=== PATIENT | female | born 1970 | race Caucasian/White ===

== ENCOUNTER 2020-02-16 05:34 | Observation (INO) ==
--- NOTE | 2020-02-05 16:21 | PAT Medication Instructions ---
Medication Instructions Date of Service February 05, 2020 Home Medications lisinopril 20 mg PO QPM medroxyprogesterone 10 mg PO QPM ASK your surgeon for instructions medroxyprogesterone 10 mg PO QPM Take evening before surgery lisinopril 20 mg PO QPM OTHERWISE NOTHING TO EAT OR DRINK AFTER MIDNIGHT Other Notes If you have any questions please call us at [phone] or [phone] or [phone] or [phone]
--- NOTE | 2020-02-07 15:01 | Anesthesiology Consultation ---
Date of Service February 07, 2020 Assessment & Plan (1) Encounter for pre-operative examination: COVID Status: As of 02/06 assessment, patient denies travel to endemic area, known exposure/sick contacts, or symptoms of COVID19. Patient instructed that they and their household members must follow strict social distancing guidelines, wear a mask in public and avoid travel for 14 days prior to surgery. Preoperative COVID19 testing to be completed prior to surgery per surgeon's arrangements. Patient made aware to self-isolate as much as possible between COVID testing and surgery. Chart Review Chart Review: Acceptable Risk for Surgery and Patient seen in Pre Admission Testing Teaching & Discussion Instructed NPO after midnight before surgery, except medications with 15 cc of water. Medication instructions provided according to the PAT guidelines. History Surgery Operation Date: 02/16/20 07:00 Proposed Procedures p Total Laparoscopic Hysterectomy, Bilateral Salphingectomy and Cystoscopy - Latha Shea Height/Weight Height: 5 ft 4 in Weight: 78.7 kg Allergies Allergy/AdvReac Type Severity Reaction Status Date / Time No Known Allergies Allergy Verified 02/02/20 08:32 Medications Home Medications Medication Instructions Recorded Confirmed Last Taken lisinopril 20 mg PO QPM 02/02/20 02/02/20 Unknown medroxyprogesterone 10 mg PO QPM 02/02/20 02/02/20 Unknown Past Medical History Medical History HTN (hypertension) Exercise / Class Metabolic Activity II 4-5 Yardwork/Stairs/Walk up hill (Denies CP or SOB with 1 FOS) Past Surgical History Surgical History History of D&C x2 History of endometrial ablation History of tonsillectomy History of tubal ligation Past Anesthesia History No Hx of Anesthesia Complications and No Family Hx of Anesthesia Complications History of PONV No Hx of PONV and No Hx of Motion Sickness (except on rollercoasters) Social History Smoking Status: Never smoker Do You Dip or Chew Tobacco: No Hx Alcohol Use: Yes alcohol intake frequency: a few times a month Alcohol Intake Frequency Comment: 1 drink per week Hx Substance Use: No substance use type: does not use Review of Systems Pt denies any recent chest pain, shortness of breath, palpitations, cough, fever, URI, or uncontrolled acid reflux. Physical Exam Vital Signs BP: 149/83 (has been more elevated recently, PCP monitoring) P: 71bpm SPO2: 99% RA T: 98.5 F R: 16 ENMT Mouth: + dental restorations (fillings only) and + small oral opening; no chipped teeth and no loose teeth Thyromental Distance: < 3.5 Finger Breadths (3) Mallampati Class: II Neck normal visual inspection; neck extension not limited Respiratory normal respiratory effort Auscultation: lungs clear to auscultation bilaterally Cardiovascular Rate/Rhythm: regular rate and regular rhythm Heart Sounds: no murmur Extremities: no edema Testing Laboratory Results 02/07/20 15:16 02/07/20 15:16 Blood Type A Positive 02/07/20 15:13 Antibody Screen NEGATIVE 02/07/20 15:13 Electrocardiogram Date: 02/07/20 Findings: + NSR @ (67bpm) Stress Test Date: 08/19/19 Type: exercise Examination is adequate to evaluate the referral indication. The stress echo is negative for inducible ischemia. Mild equivocal EKG changes were noted in the post exercise recovery interval.
[2020-02-07 15:48] LABS: Basophils # (auto) 0.01 K/uL (0-0.2); Basophils % (auto) 0.1 %; Eosinophils # (auto) 0.11 K/uL (0-0.5); Eosinophils % (auto) 1.4 %; Hematocrit (blood only) 41.1 % (37-47); Hemoglobin 13.7 g/dL (12.0-16.0); Immature Granulocytes # (auto) 0.01 K/uL (0.00-0.02); Immature Granulocytes % (auto) 0.1 %; Lymphocytes # (auto) 2.22 K/uL (1.2-3.4); Lymphocytes % (auto) 27.9 %; Mean Corpuscular Hemoglobin 31.6 pg (25-34); Mean Corpuscular Hgb Conc 33.3 g/dL (32-36); Mean Corpuscular Volume 94.7 fL (80-100); Mean Platelet Volume 9.3 fL (7.4-10.4); Monocytes % (auto) 6.3 %; Neutrophils # (auto) 5.11 K/uL (1.4-6.5); Neutrophils % (auto) 64.2 %; Platelet Count 332 K/uL (130-400); RDW Coefficient of Variation 12.9 % (11.5-14.5); RDW Standard Deviation 45.1 fL (36.4-46.3); Red Blood Count 4.34 M/uL (4.2-5.4); White Blood Count 7.96 K/uL (4.8-10.8)
[2020-02-07 16:09] LABS: BUN Creatinine Ratio 15.5 (10-20); Calcium 8.6 mg/dl (8.5-10.1); Creatinine Clr Calc Pharmacy 103.5 ml/min; Est GFR (African American) 119.4
--- NOTE | 2020-02-07 17:17 | Electrocardiogram Report ---
Test Reason : Blood Pressure : / mmHG Vent. Rate : 067 BPM Atrial Rate : 067 BPM P-R Int : 128 ms QRS Dur : 100 ms QT Int : 404 ms P-R-T Axes : 027 066 043 degrees QTc Int : 426 ms Normal sinus rhythm Normal ECG No previous ECGs available Confirmed by Pato Martinez ([id number]) on 02/07/2020 5:17:25 PM Referred By: Latha Shea Confirmed By:Cristobal Martinez
[2020-02-16] MEDS ORDERED: LACTATED RINGER'S 1,000 ML IV SCH ×2 (06:00→19:30)
[2020-02-16] MEDS ORDERED: LR 15ML/HR IV SCH (06:00)
[2020-02-16] MEDS ORDERED: CEFAZOLIN 2000MG 2,000 MG/15 ML SYR IV SCH (06:00)
--- NOTE | 2020-02-16 06:26 | History & Physical Bridge Note ---
Date of Service February 16, 2020 History & Physical Bridge Note I have examined the patient, reviewed the History & Physical and in the interval since the performance of the History & Physical I have noted the following changes of clinical significance: no changes noted
[2020-02-16] MEDS ORDERED: ONDANSETRON INJ 2 MG/ML 2 ML VIAL ONE (06:36)
[2020-02-16] MEDS ORDERED: LIDOCAINE HCL 2% 2 ML VIAL/AMP(20MG/ML) INFIL ONE (06:36)
[2020-02-16] MEDS ORDERED: MIDAZOLAM HCL 1 MG/ML 2ML VIAL ONE (06:36)
[2020-02-16] MEDS ORDERED: PROPOFOL IV EMULSION 10 MG/ML 20 ML VIAL IV ONE (06:36)
[2020-02-16] MEDS ORDERED: GLYCOPYRROLATE 0.2 MG/ML VIAL ONE ×2 (06:36→08:25)
[2020-02-16] MEDS ORDERED: fentaNYL citrate 100 MCG/2 ML VIAL ONE ×3 (06:36→08:33)
[2020-02-16] MEDS ORDERED: NEOSTIGMINE METHYLSULFATE 5 MG/5 ML SYR ONE (06:36)
[2020-02-16] MEDS ORDERED: DEXAMETHASONE SOD INJ 4 MG/ML VIAL ONE (06:36)
[2020-02-16] MEDS ORDERED: BUPIVACAINE 0.5 % 5 MG/1 ML MPF 30ML VIAL ONE (06:40)
[2020-02-16] MEDS ORDERED: ATROPINE SULFATE 0.1 MG/ML 10ML SYR IV PRN (06:59)
[2020-02-16] MEDS ORDERED: PROMETHAZINE HCL 12.5 MG in SODIUM CHLORIDE 0.9% 50 ML IV PRN (06:59)
[2020-02-16] MEDS ORDERED: ONDANSETRON INJ 2 MG/ML 2 ML VIAL IV PRN (06:59)
[2020-02-16] MEDS ORDERED: ePHEDrine sulfate 50 MG/ML AMP IV PRN (06:59)
[2020-02-16] MEDS ORDERED: LABETALOL HCL IV 5 MG/ML 20ML IV PRN (07:13)
[2020-02-16] MEDS ORDERED: LABETALOL HCL IV 5 MG/ML 20ML IV ONE (07:52)
[2020-02-16] MEDS ORDERED: ROCURONIUM BROMIDE 10 MG/ML 5 ML VIAL IV ONE (08:05)
[2020-02-16] MEDS ORDERED: KETOROLAC 30 MG/ML VIAL ONE (08:25)
--- NOTE | 2020-02-16 08:37 | Post Operative Brief Note ---
Immediate Post Op Note v1 Date of Surgery February 16, 2020 Pre & Post Diagnosis Operation Date: 02/16/20 07:00 Pre-Op Diagnosis: Dysmenorrhea, History of Endometrial Ablation Post-Op Diagnosis: Dysmenorrhea, History of Endometrial Ablation I identified the patient and participated in the time-out.: Yes Procedure Operation Date: 02/16/20 07:00 Actual Procedures p Total Laparoscopic Hysterectomy, Bilateral Salphingectomy and Cystoscopy(Bilateral) - Latha Shea Surgeon Latha Shea [employer] Geno Gage PA-C Estimated Blood Loss 30 Findings Consistent with Post-Op Diagnosis Drains Longo Catheter (16f longo catheter inserted at start of procedure by Meena aGge PA-C without difficulty)
[2020-02-16] MEDS: fentaNYL citrate 100 MCG/2 ML VIAL IV PRN ×2 (08:53→09:10)
[2020-02-16] MEDS ORDERED: HydrALAZINE HCL 20 MG/ML VIAL IV STA (09:07)
--- NOTE | 2020-02-16 09:07 | Operative Report ---
Post Operative Report Pre & Post Diagnosis Operation Date: 02/16/20 07:00 Pre-Op Diagnosis: Dysmenorrhea, History of Endometrial Ablation Post-Op Diagnosis: Dysmenorrhea, History of Endometrial Ablation I identified the patient and participated in the time-out.: Yes Procedure Operation Date: 02/16/20 07:00 Actual Procedures p Total Laparoscopic Hysterectomy, Bilateral Salphingectomy and Cystoscopy(Bilateral) - Latha Shea Surgeon Latha Shea Abalone Fisherman Geno Gage PA-C Estimated Blood Loss 30 Findings See Below 1. 6 cm anteverted (h/o endometrial ablation, therefore may not be accruate cavity length) 2. Normal appearing ovaries bilaterally 3. Truncated fallopian tubes bilaterally (h/o tubal ligation) 4. Omental adhesions to the left ovary 5. Anterior and posterior cul-de-sac were free of disease or lesions 6. Le appearing liver edge 7. Appendix not visualized 8. On cystoscopy, normal appearing bladder dome which was free of suture or lesions 9. Brisk bilateral efflux of urine by the ureteral orifices Fluids See Anesthesia Report Specimens Uterus, cervix, and remaining portions of bilateral fallopian tubes Drains Longo catheter: 500 ml (removed at the endo to the case) Anesthesia Type General Complications none Indications 49 yo with h/o ablation for heavy menstrual bleeding. Bleeding controlled with the ablation, however, severe dysmenorrhea persists. Patient desires definitive surgical management via hysterectomy. Description of Procedure Under GA in the dorsal lithotomy position, the patient was prepped and draped in the usual sterile fashion. Beginning at the vagina, a longo catheter was inserted under sterile conditions and left in situ for the remainder of the case. A weighted speculum was then placed in the vagina and with the help of a right angle retractor the cervix was visualized and grasped anteriorly with a single tooth tenaculum. The uterus was sounded to 6 cm with a uterine sound. The cervical os was dilated up. An [email or web address] uterine manipulator with a metal cup was inserted. The weighted speculum was then removed. Attention was then turned to the abdomen. 0.5% marcaine solution was used for infiltration of all port sites. Beginning in the subumbilical area, the skin was first infiltrated with ~ 2 cc of the marcaine solution, then a 5 mm incision was made through the skin with a #11 blade. Direct entry with a 5 mm trocar, sleeve, and laparoscope was made into the peritoneal cavity. The opening pressure was < 8 mmHg. The peritoneal cavity was insufflated with CO2 gas to a maximum pressure of 20 mmHg. Examination of the peritoneal cavity revealed no signs of injury from entry and the above noted anatomical structures. The patient was then placed in steep Trendelenburg and three more 5 mm trocars were placed, one on the right and two on the left, in the standard technique, taking care to avoid the epigastric vessels. All trocars were placed under direct visualization with no inadvertent damage to underlying structures. The uterus was upheld from below and revealed a normal uterus and truncated fallopian tubes and normal ovaries. The MARCO Harmonic was used to grasp, coagulate and cut the omental adhesions from the left ovary, allowing visualization of the left fallopian tube. Hemostasis was noted. Beginning on the left side and working distally along the length of the fallopian tube, the mesosalpinx was exposed by lifting the tube up towards the anterior abdominal wall. The mesosalpinx was then sequentially, clamped, ligated, and cut using the MARCO Harmonic working alongside the length of the tube and towards the cornua. Once the level of the cornua was reached the tube was ligated and cut and removed through a 5 mm port. Attention was then turned to the other side. The same process was repeated on the right, sequentially clamping, ligating, and cutting the mesosalpinx being sure to not injure the adj acent ovarian tissue or other surrounding structures. The round ligament was then ligated and cut. Following this, the anterior leaf of the broad ligament was then taken down on the right side, dissecting down towards the peritoneal reflection at the base of the bladder and adjacent to the cervix. The same process was then repeated on the left side such that both sides met and the anterior leaflet had been appropriately skeletonized. Once the bladder was appropriately dissected free from the lower anterior uterine segment and the tissues skeletonized, the uterine arteries were bilaterally clamped and ligated. Pedicles were checked and hemostatic. At the level of the metal cup of the uterine manipulator, the vaginal vault was incised circumferentially with the MARCO Harmonic. The uterus, cervix, portion of tubes were delivered through the vagina and sent to pathology. A vaginal occluder was then placed into the vagina to form a pneumatic seal and all the pedicles as well as the cuff edges were examined. Oozing was noted at the left corner of the vaginal cuff. Hemostasis was achieved with german. The vaginal vault was then closed with a V-Loc barbed stitch being sure to avoid the bladder lateral pedicles. Following vault closure, an inspection of all areas was made to ensure hemostasis. The pelvis was then copiously irrigated and suctioned. Tisseal was then placed along the adnexal regions and vaginal cuff. Hemostasis was again noted. All ports were removed under direct visualization and hemostasis noted. All the incision sites were then closed with 4-0 monocryl sutures in a subcuticular fashion and dermabond. Attention was then turned to the vagina. The vaginal occluder and longo catheter were removed without incident. Cystoscopy was then performed. Normal appearing bladder dome which was free of suture or lesions. There was brisk bilateral efflux of urine by the ureteral orifices. The bladder was drained and the cystoscope was removed without incident. At the end of the procedure, all sponges, instruments, and sharps were counted and correct. Estimated blood loss was 30 ml. The patient was taken to recovery in stable condition. My Abalone Fisherman was necessary throughout the procedure for uterine manipulation, retraction, handling of the laparoscope and laparoscopic instruments to ensure adequate visualization, gentle tissue manipulation, and hemostasis. I attest to the content of the Intraoperative Record and any orders documented therein. Any exceptions are noted below.
[2020-02-16] MEDS ORDERED: HydrALAZINE HCL 20 MG/ML VIAL ONE (09:10)
[2020-02-16] MEDS: HYDROmorphone INJ 1 MG/ML SYRINGE IV PRN ×4 (09:30→10:00)
--- NOTE | 2020-02-16 10:43 | Anesthesiology Progress Note ---
Date of Service February 16, 2020 Anesthesia Post Procedure Vital Signs Vital Signs: Temp Pulse Pulse Resp BP BP Pulse Ox 02/16/20 10:20 74 16 146/93 H 99 02/16/20 10:05 36.8 C 67 14 155/83 H 99 02/16/20 09:55 83 18 194/97 H 100 02/16/20 09:45 84 15 186/104 H 100 02/16/20 09:35 66 13 187/96 H 99 02/16/20 09:25 65 16 197/96 H 100 02/16/20 09:15 63 14 189/94 H 93 02/16/20 09:05 57 L 14 207/99 H 97 02/16/20 08:55 61 16 202/100 H 95 02/16/20 08:45 36.5 C 85 18 157/93 H 96 02/16/20 06:09 36.8 C 70 18 191/113 H 99 Pain Intensity Abdomen: Pain Intensity: 2 Transfer of Care Handoff Completed per policy Notes Mental Status: alert / awake / arousable and participated in evaluation Patient Amnestic to Procedure: Yes Nausea / Vomiting: adequately controlled Pain: adequately controlled Airway Patency, RR, SpO2: stable & adequate BP & HR: stable & adequate Hydration State: stable & adequate Anesthetic Complications: no major complications apparent and Pt Satisfied with anesthetic care
[2020-02-16] MEDS: SIMETHICONE 80 MG CHEW PO SCH ×2 (12:40→17:04)
[2020-02-16] MEDS: DOCUSATE SODIUM 100 MG CAP PO SCH ×2 (12:40→21:47)
[2020-02-16] MEDS: IBUPROFEN 600 MG TAB PO SCH ×2 (12:41→17:03)
[2020-02-16] MEDS: ACETAMINOPHEN 500 MG TAB PO SCH ×3 (13:43→21:47)
[2020-02-16] MEDS: ONDANSETRON INJ 2 MG/ML 2 ML VIAL IV PRN ×2 (14:42→21:57)
[2020-02-16] MEDS ORDERED: PROMETHAZINE HCL 25 MG in SODIUM CHLORIDE 0.9% 50 ML IV PRN (19:17)
[2020-02-16] MEDS: OXYCODONE HCL IR 5 MG TAB (IMMEDIATE RELEASE) PO PRN (19:24)
[2020-02-16] MEDS ORDERED: lisinopriL 20 MG TAB PO SCH (21:00)
[2020-02-17] MEDS: SIMETHICONE 80 MG CHEW PO SCH ×3 (00:38→11:32)
[2020-02-17] MEDS: IBUPROFEN 600 MG TAB PO SCH ×3 (00:38→11:32)
[2020-02-17] MEDS: OXYCODONE HCL IR 5 MG TAB (IMMEDIATE RELEASE) PO PRN (03:08)
[2020-02-17] MEDS: ACETAMINOPHEN 500 MG TAB PO SCH ×2 (05:11→12:46)
[2020-02-17] MEDS: DOCUSATE SODIUM 100 MG CAP PO SCH (08:16)
--- NOTE | 2020-02-17 08:53 | Gynecologic Progress Note ---
Date of Service February 17, 2020 Assessment & Plan (1) S/P laparoscopic hysterectomy: POD#1. s/p TLH/BS/Cystoscopy. Patient can be discharged home if tolerating regular diet. Incision pain is controlled. Post-operative medications previously prescribed. Recommend ambulation, ming christian, simethicone, and chewing gum to assist with the relieving of the gas pain. Discharge home with instructions. Present on Admission?: No Admission and Anticipated Discharge Date Admission Date: February 16, 2020 Anticipated date of discharge: 02/17/20 Subjective POD#1. s/p TLH/BS/Cystoscopy. Patient with difficulty urinating over night. Patient was straight cath several times overnight but able to use the bathroom without difficulty this morning. Patient with emesis overnight and IV fluids restarted. Patient is eating breakfast this morning. Incisional pain is controlled. Patient is having gas pain. Denies fevers, chills, SOB or CP. Review of Systems Review of Systems: All systems reviewed & are unremarkable except as noted in Subjective Physical Exam Constitutional: WD/WN, vitals as above Respiratory: normal respiratory effort, lungs clear to auscultation Gastrointestinal (Abdomen): Inspection/Auscultation: abdomen normal to inspection and normal bowel sounds Appropriately tender to palpation. Incisions: C/D/I. No erythema or edema Results & Data ([facility]) Vital Signs (Past 12 Hours) Vital Signs Temp Pulse Resp BP BP Pulse Ox Pulse Ox 02/17/20 03:07 37.2 C 97 H 20 136/82 96 02/17/20 00:00 96 02/16/20 22:55 37.0 C 72 16 153/81 H 95
--- NOTE | 2020-02-17 08:56 | Discharge Summary ---
Date of Service February 17, 2020 Admission HPI Per Admitting Provider 49 year [id number] using BTL for contraception presents with dysmenorrhea. H/o endometrial ablation 2 years ago for heavy menstrual bleeding. Patient reports monthly menses, lasting 3 days with only light spotting. Patient with severe dysmenorrhea with each cycle which is worsening. Patient reports initially pain with menses was every 3 months, now monthly dysmenorrhea. Patient reports pain as a hammer pounding on her left side then radiating throughout her pelvis and then down her legs. Pain unrelieved with NSAIDs. Currently using provera with continued pain. Denies pain outside of menses. Denies intermenstrual or post- coital bleeding. Denies abnormal vaginal discharge. Denies urinary or bowel symptoms. Admission Exam (Per Admitting) Constitutional WD/WN, vitals as above Respiratory normal respiratory effort, lungs clear to auscultation Gastrointestinal (Abdomen) Inspection/Auscultation: abdomen normal to inspection and normal bowel sounds Discharge Data Procedures Performed Operation Date: 02/16/20 07:00 Actual Procedures p Total Laparoscopic Hysterectomy, Bilateral Salphingectomy(Bilateral) - [facility] s Cystoscopy - [facility] Course (1) S/P laparoscopic hysterectomy: POD#1. s/p TLH/BS/Cystoscopy. Patient can be discharged home if tolerating regular diet. Incision pain is controlled. Post-operative medications previously prescribed. Recommend ambulation, ming christian, simethicone, and chewing gum to assist with the relieving of the gas pain. Discharge home with instructions. Discharge Instructions POST OPERATIVE: BOWEL FUNCTION/MEDICATIONS: 1. Constipation pain and discomfort are the most common complaints 5-7 days after surgery. Points 2-6 address the things that can help. 2. Chewing gum can help stimulate the gut and help improve digestion and motility. 3. Milk of Magnesia 1-2 times per day until return of bowel function. 4. Colace is a stool softener that helps. Taking this 2-3 times per day until bowel function returns to normal is highly recommended. 5. Dulcolax is a laxative that may be used if several days have passed without a bowel movement. Alternatively Miralax may be used daily instead. 6. Drink plenty of fluids as this will also reduce constipation. 7. Narcotic pain medications will be prescribed by your physician. They are safe to use and we encourage you to use them. If you are not allergic, ibuprofen will also be prescribed. Many patients will be able to transition off of the narcotic medications to ibuprofen by postoperative day 3. ACTIVITY RECOMMENDATIONS: 1. Get plenty of rest and listen to your body. If you are tired, take a nap. 2. You may shower, but do not take a tub bath until you see your doctor at the 2 week post operative visit. 3. Absolutely NO intercourse and nothing in the vagina until you are examined by your doctor at the 6 week visit. At that visit it will be determined when such activities can be resumed. This can range from 6-12 weeks after your surgery depending on healing time. 4. The main physical activity in the first week should be walking. By the second week you can slowly increase activity. There are no limits on walking up and down stairs. 5. Do not lift more than 5-10 lbs for 4 weeks. Remember the "one-handed rule", i.e. if you can lift something with only one hand it's likely okay. 6. Minimize curtain roller assembler like vacuuming and exercising for 4 weeks. "Overdoing it" can lead to incisions not healing, pain and vaginal bl eeding, so again, listen to your body. 7. Driving can be resumed when you feel able. Do not drive within 24 hours of taking a narcotic medication. EXPECTATIONS: 1. Vaginal spotting, bleeding and discharge are common after surgery. There may even be an odor to the discharge which is often related to sutures used in the vagina. If you experience heavy vaginal bleeding, call the office number day or night [phone]. 2. Bladder discomfort is common after surgery from the catheter. This usually resolves in 1-2 weeks. 3. By the end of the 3rd or 4th week you should be feeling much better. It may take up to 6 weeks for your energy levels to return to normal. 4. Narcotic medications have side effects such as: dizziness, headache, nausea and/or vomiting. If you suspect your pain medication is causing problems, call our office and we may be able to prescribe an alternate medication. 5. The skin incisions are often covered with a liquid bandage. This will gradually peel off over time. CALL THE OFFICE IF YOU HAVE ANY OF THE FOLLOWIN. Temperature of 101 degrees or higher. 2. Severe abdominal or pelvic pain not relieved by pain medication. 3. Persistent nausea or vomiting. 4. Increased pain with urination or difficulty urinating. 5. Bright red bleeding that soaks more than 1 pad per hour. CONTACT PHONE NUMBERS: Main Office: [phone] Avoid all tobacco products. If you need help to stop smoking, call [place]'s FREE QUITLINE at . This is a free call.
== END 2020-02-17 12:57 | disposition home or self-care (01) ==
LOC: ASU 05:34 → 3W 05:34